=== PATIENT | male | born 1965 | race Caucasian/White ===

== ENCOUNTER → 2016-05-10 | Outpatient (CLI) | payer MEDICARE, MEDICAID | LOC: GMAB 17:05 | PROVIDERS: ATTEND Family Medicine | DX: D50.9 Iron deficiency anemia, unspecified (principal); E53.8 Deficiency of other specified B group vitamins ==

== ENCOUNTER 2016-06-03 15:43 | Emergency (ER) | payer MEDICARE, MEDICAID ==
--- NOTE | 2016-06-03 16:14 | ED.PDOC ---
History of Present Illness - General Chief Complaint: General Stated Complaint: right ankle discomfort Time Seen by Provider: 06/03/16 15:56 Source: patient, RN notes reviewed, Vital Signs reviewed Exam Limitations: no limitations - History of Present Illness Initial Comments: He stated was getting out of bathroom one hour ago twisted right ankle and heard a pop.Had previous surgery on involve ankle several years ago.Denies falling. Occurred: just prior to arrival Pain - Lower Extremity: moderate: Right Ankle Method of Injury: twisted Improving Factors: immobilization Worsening Factors: movement Allergies/Adverse Reactions: Allergies NO KNOWN ALLERGY Allergy (Verified 06/03/16 16:05) Home Medications: Ambulatory Orders Aspirin [Aspirin EC] 81 mg PO DAILY 06/03/14 Canagliflozin [Invokana] 100 mg PO DAILY 06/03/14 Cyanocobalamin Inj [Vitamin B-12 Inj] 1,000 mcg IM MONTHLY 06/03/14 Linagliptin-Metformin HCl [Jentadueto 2.5-1000 mg] 1 tab PO BIDFD 06/03/14 Lisinopril 20 mg PO BID 06/03/14 Metoprolol Tartrate 100 mg PO BID 06/03/14 Multiple Vitamin [Multi-Vitamin Daily] 1 tab PO DAILY 06/03/14 Nitroglycerin 0.4 mg Tab [Nitrostat] 0.4 mg SL PRN PRN 06/03/14 Quetiapine Fumarate [Seroquel Xr] 400 mg PO BEDTIME #0 06/03/14 Acetaminophen W/ Codeine [Tylenol w/Codeine 300-30 mg] 1 tab PO Q6HRS #20 tab Dexlansoprazole [Dexilant] 60 mg PO DAILY 06/03/16 Review of Systems - Review of Systems Constitutional: States: no symptoms reported EENTM: States: no symptoms reported Respiratory: States: no symptoms reported Cardiology: States: no symptoms reported Gastrointestinal/Abdominal: States: no symptoms reported Genitourinary: States: no symptoms reported Musculoskeletal: States: see HPI, joint pain, joint swelling - right ankle Skin: States: no symptoms reported Neurological: States: no symptoms reported Endocrine: States: no symptoms reported Hematologic/Lymphatic: States: no symptoms reported Past Medical History (General) - Patient Medical History Hx Seizures: Yes - Hx of seizures Hx Stroke: No Hx Asthma: No Hx of COPD: No Hx Cardiac Disorders: Yes Hx Congestive Heart Failure: No Hx Pacemaker: No Hx Hypertension: Yes Hx Thyroid Disease: Yes Hx Diabetes: Yes Hx Gastroesophageal Reflux: Yes Hx Cancer: No Hx Hepatitis C: No Hx MRSA: Yes - Arm Wound 2013, Wound 2014, Wound 2016 MRSA Source:: Wound Surgical History: other - ankle surgery right - Vaccination History Hx Influenza Vaccination: Yes - 2015 Hx Pneumococcal Vaccination: Yes - 2016 - Social History Hx Tobacco Use: No Hx Alcohol Use: No Hx Substance Use: No Hx Substance Use Treatment: No Hx Depression: No Hx Physical Abuse: No Hx Emotional Abuse: No - Activities of Daily Living Patient Lives Alone: No - family - Female History Patient : No Family Medical History - Family History Mother Family History: No Known Name: Alex Jiménez Age (years): 51 Living Status: Still Living Hx Family Asthma: No Hx Family Congestive Heart Failure: No Hx Family Hypertension: No Hx Family Stroke: No Hx Cardiac Disease: No Hx Family Diabetes: No Hx Family Cancer: Yes - colon Physical Exam - Physical Exam General Appearance: Alert, Comfortable, No apparent distress Eyes, Ears, Nose, Throat: PERRL/EOMI, normal ENT inspection, TMs normal, pharynx normal Neck: non-tender, full range of motion, supple, normal inspection Cardiovascular/Respiratory: regular rate, rhythm, no M/R/G, normal peripheral pulses, no JVD Gastrointestinal/Abdominal: non-tender, no organomegaly, no hernia Back: normal inspection, no CVA tenderness, no vertebral tenderness Thigh/Hip: normal inspection, non-tender, no evidence of injury Leg: normal inspection, non-tender, no evidence of injury Knee: normal inspection, non-tender, no evidence of injury Ankle: limited ROM, soft tissue tenderness, swelling - right ankle also surgical scars noted Foot: normal inspection, non-tender, no evidence of injury Neuro/Tendon: normal sensation, normal motor functions, normal tendon functions , responds to pain, no evidence tendon injury Mental Status: alert, oriented x 3 Skin: normal color, warm/dry Progress - EKG/XRAY/CT XRAY: ankle - fracture right fibula distal Departure - Departure Clinical Impression: Fracture of fibula alone Qualifiers: Encounter type: initial encounter Fibula location: distal Fracture type: closed Fracture alignment: nondisplaced Laterality: right Time of Disposition: 16:47 Disposition: Discharge to Home or Self Care Condition: Good Departure Forms: ED Discharge - Pt. Copy, Patient Portal Self Enrollment Instructions: Ankle Fracture Referrals: Vamshi Berger MD [Primary Care Provider] - 1-2 Weeks Prescriptions: Acetaminophen W/ Codeine [Tylenol w/Codeine 300-30 mg] 1 tab PO Q6HRS #20 tab Home Medications: Ambulatory Orders Aspirin [Aspirin EC] 81 mg PO DAILY 06/03/14 Canagliflozin [Invokana] 100 mg PO DAILY 06/03/14 Cyanocobalamin Inj [Vitamin B-12 Inj] 1,000 mcg IM MONTHLY 06/03/14 Linagliptin-Metformin HCl [Jentadueto 2.5-1000 mg] 1 tab PO BIDFD 06/03/14 Lisinopril 20 mg PO BID 06/03/14 Metoprolol Tartrate 100 mg PO BID 06/03/14 Multiple Vitamin [Multi-Vitamin Daily] 1 tab PO DAILY 06/03/14 Nitroglycerin 0.4 mg Tab [Nitrostat] 0.4 mg SL PRN PRN 06/03/14 Quetiapine Fumarate [Seroquel Xr] 400 mg PO BEDTIME #0 06/03/14 Acetaminophen W/ Codeine [Tylenol w/Codeine 300-30 mg] 1 tab PO Q6HRS #20 tab Dexlansoprazole [Dexilant] 60 mg PO DAILY 06/03/16 Additional Instructions: FOLLOW UP WITH ORTHOPEDIST 06/05/2016 call for appointment;WEAR WALKING BOOT CAST IN AM OFF AT BEDTIME ;ELEVATE RIGHT LEG 20 DEGREES AT BEDTIME;ICE PACK TO AFFECTED AREA FOR 20 minutes during WAKING hours only
--- NOTE | 2016-06-03 16:26 | RAD ---
EXAM: Ankle,Right 3 Views CLINICAL INDICATION: 51-year-old male with pain. TECHNIQUE: Three views RIGHT ankle were obtained in AP, lateral and oblique projections. COMPARISON: 10/03/2012. FINDINGS: Reidentification of postoperative changes of the RIGHT distal tibia and talus compared to examination dated 10/03/2012. Deformity of the distal tibia, fibula and talus compatible with sequela of prior trauma. Multifocal screws are identified traversing the distal tibia without findings to suggest significant lucency to suggest loosening or hardware failure. Previously identified screw traversing the talus has been removed in the interval. Degenerative changes of the tibiotalar joint space. New nondisplaced horizontal fracture is identified traversing the distal fibula. Mild lateral malleolar soft tissue swelling. Widening of the tibiotalar joint space similar in comparison to the previous examination. IMPRESSION: 1. Horizontal nondisplaced fracture of the distal fibula. 2. Extensive postoperative changes as detailed above. Electronically signed by: Seema Albert MD 06/03/2016 4:26 PM [facility]
[2016-06-03] MEDS ORDERED: HYDROcodone 10MG/APAP 325MG 1 EA TAB PO ONE (16:49)
[2016-06-03 18:04] VITALS: BP 123/69; TEMP 97.5; O2SAT 97
== END 2016-06-03 17:20 | disposition home or self-care (01) ==
LOC: ER 15:43
DX: S82.831A Other fracture of upper and lower end of right fibula, initial encounter for closed fracture (principal); I10 Essential (primary) hypertension; E07.9 Disorder of thyroid, unspecified; E11.9 Type 2 diabetes mellitus without complications; K21.9 Gastro-esophageal reflux disease without esophagitis; Z86.14 Personal history of Methicillin resistant Staphylococcus aureus infection; Z79.82 Long term (current) use of aspirin; Z79.899 Other long term (current) drug therapy; X50.1XXA Overexertion from prolonged static or awkward postures, initial encounter

== ENCOUNTER → 2016-06-28 | Outpatient (CLI) | payer MEDICARE, MEDICAID ==
--- NOTE | 2016-06-28 13:15 | RAD ---
EXAM DESCRIPTION: Tibia/Fibula,Right CLINICAL HISTORY: 51 years Male, FX COMPARISON: June 03, 2016 TECHNIQUE: AP lateral right tib-fib FINDINGS: Transverse fracture distal fibular metaphysis is present and appears subacute but shows no evidence of significant healing since the comparison study. There is also a fracture of the medial malleolus which has become apparent since the previous study. This is a sagittal plane fracture. There is an abnormal relationship of the ankle mortise with widening of the lateral aspect. This indicates significant ligamentous injury/instability. IMPRESSION: 1. Medial and lateral malleolus fractures and findings of mortise joint instability. Electronically signed by: Khurram Lal MD 06/28/2016 1:13 PM CDT
== END | disposition home or self-care (01) ==
LOC: RAD 12:31
PROVIDERS: ATTEND Podiatrist Foot & Ankle Surgery
DX: S82.54XA Nondisplaced fracture of medial malleolus of right tibia, initial encounter for closed fracture (principal); S82.64XA Nondisplaced fracture of lateral malleolus of right fibula, initial encounter for closed fracture

== ENCOUNTER → 2016-08-23 | Outpatient (CLI) | payer MEDICARE, MEDICAID | END | disposition home or self-care (01) | LOC: GMAB 16:35 | PROVIDERS: ATTEND Family Medicine | DX: E03.9 Hypothyroidism, unspecified (principal) ==

== ENCOUNTER → 2016-08-28 | Outpatient (CLI) | payer MEDICARE, MEDICAID | LOC: BFHH 15:53 | PROVIDERS: ATTEND Family Medicine | DX: E11.9 Type 2 diabetes mellitus without complications (principal); M86.9 Osteomyelitis, unspecified ==

== ENCOUNTER → 2016-09-04 | Outpatient (CLI) | payer MEDICARE, MEDICAID | END | disposition home or self-care (01) | LOC: BFHH 17:09 | PROVIDERS: ATTEND Family Medicine | DX: M86.9 Osteomyelitis, unspecified (principal) ==

== ENCOUNTER → 2016-09-18 | Outpatient (CLI) | payer MEDICARE, MEDICAID | END | disposition home or self-care (01) | LOC: BFHH 15:08 | PROVIDERS: ATTEND Family Medicine | DX: M86.8X7 Other osteomyelitis, ankle and foot (principal); I10 Essential (primary) hypertension; E11.69 Type 2 diabetes mellitus with other specified complication; B95.62 Methicillin resistant Staphylococcus aureus infection as the cause of diseases classified elsewhere ==

== ENCOUNTER 2016-09-23 13:52 | Emergency (ER) | payer MEDICARE, MEDICAID ==
[2016-09-23 14:02] VITALS: BP 147/89; TEMP 97.3; O2SAT 97
[2016-09-23] MEDS ORDERED: NEOMYCIN-BACITRACIN-POLYMYXIN 0.9 GM UD TOP ONE (14:08)
[2016-09-23] MEDS ORDERED: CIPROFLOXACIN 500 MG TAB PO ONE (14:10)
--- NOTE | 2016-09-23 14:12 | ED.PDOC ---
History of Present Illness - General Chief Complaint: Skin/Abrasion/Tear Time Seen by Provider: 09/23/16 13:58 Source: patient Exam Limitations: no limitations - History of Present Illness Initial Comments: The patient is a 51-year-old male presenting to the emergency room secondary to serosanguineous drainage immediately over a pain pump site to his right lateral abdomen. He had a pain pump placed approximately 1 year ago. 2 days ago he started having some pain at the site. He developed something along the lines of a blood blister that ruptured today. The point of rupture does immediately overlying a corner of the pain pump. He currently takes IV daptomycin for a foot infection. Wound culture has been taken of the site on his right side. The area does not appear erythematous or significantly irritated. No obvious infection as the source. Timing/Duration: 24 hours Severity: moderate Improving Factors: nothing Worsening Factors: nothing Associated Symptoms: denies symptoms Allergies/Adverse Reactions: Allergies NO KNOWN ALLERGY Allergy (Verified 09/23/16 14:05) Home Medications: Ambulatory Orders Aspirin [Aspirin EC] 81 mg PO DAILY 06/03/14 Canagliflozin [Invokana] 100 mg PO DAILY 06/03/14 Cyanocobalamin Inj [Vitamin B-12 Inj] 1,000 mcg IM MONTHLY 06/03/14 Linagliptin-Metformin HCl [Jentadueto 2.5-1000 mg] 1 tab PO BIDFD 06/03/14 Lisinopril 20 mg PO BID 06/03/14 Metoprolol Tartrate 100 mg PO BID 06/03/14 Multiple Vitamin [Multi-Vitamin Daily] 1 tab PO DAILY 06/03/14 Nitroglycerin 0.4 mg Tab [Nitrostat] 0.4 mg SL PRN PRN 06/03/14 Quetiapine Fumarate [Seroquel Xr] 400 mg PO BEDTIME #0 06/03/14 Ciprofloxacin [Cipro] 500 mg PO BID #20 tab 09/23/16 Ferrous Sulfate [Iron] 65 mg PO DAILY 09/23/16 QUEtiapine FUMARATE [SEROquel] 100 mg PO BEDTIME 09/23/16 Thyroid Med 1 each PO DAILY 09/23/16 Review of Systems - Review of Systems Review of Systems: 09/23/16 14:12 for new symptoms only Constitutional: States: no symptoms reported EENTM: States: no symptoms reported Respiratory: States: no symptoms reported Cardiology: States: no symptoms reported Gastrointestinal/Abdominal: States: see HPI Genitourinary: States: no symptoms reported Musculoskeletal: States: no symptoms reported Skin: States: see HPI Neurological: States: no symptoms reported Endocrine: States: no symptoms reported All other Systems: No Change from Baseline Past Medical History (General) - Patient Medical History Hx Seizures: No Hx Stroke: No Hx Dementia: No Hx Asthma: No Hx of COPD: No Hx Cardiac Disorders: Yes Hx Congestive Heart Failure: No Hx Pacemaker: No Hx Hypertension: Yes Hx Thyroid Disease: Yes Hx Diabetes: Yes Hx Gastroesophageal Reflux: Yes Hx Renal Disease: No Hx Cancer: No Hx of HIV: No Hx Hepatitis C: No Hx MRSA: Yes MRSA Source:: Wound - Vaccination History Hx Tetanus, Diphtheria Vaccination: Yes Hx Influenza Vaccination: Yes Hx Pneumococcal Vaccination: Yes Immunizations Up to Date: Yes - Social History Hx Tobacco Use: No Hx Chewing Tobacco Use: No Hx Alcohol Use: No Hx Substance Use: No Hx Substance Use Treatment: No Hx Depression: No Feels Threatened In Home Enviroment: No Feels Threatened In a Relationship: No Hx Physical Abuse: No Hx Emotional Abuse: No Hx Suspected Abuse: No - Female History Patient is a Female of Child Bearing Age (10 -59 yrs old): No Patient : No Family Medical History - Family History Mother Family History: No Known Name: Alex Jiménez Age (years): 50 Living Status: Still Living Hx Family Asthma: No Hx Family Congestive Heart Failure: No Hx Family Hypertension: No Hx Family Stroke: No Hx Cardiac Disease: No Hx Family Diabetes: No Hx Family Cancer: Yes - colon Physical Exam - Physical Exam General Appearance: Alert, Comfortable, No apparent distress Eye Exam: bilateral normal Ears, Nose, Throat: normal ENT inspection, normal pharynx Neck: full range of motion, supple Respiratory: chest non-tender, lungs clear, normal breath sounds, no respiratory distress, no accessory muscle use Cardiovascular/Chest: normal peripheral pulses, no edema, other - regular rate Peripheral Pulses: radial,right: 2+, radial,left: 2+, dorsalis pedis,right: 2+, dorsalis pedis,left: 2+ Gastrointestinal/Abdominal: non tender, soft, other - pain pump is palpable to the right lateral abdomen overlying 2 mm punctate drainage site Rectal Exam: deferred Back Exam: no CVA tenderness Extremity: normal range of motion, no calf tenderness, normal capillary refill, other - chronic lesion to the right lower extremity Neurologic: alert, normal mood/affect, oriented x 3 Skin Exam: normal color - with the exception of problems above Comments: Vital Signs 09/23/16 13:58 Temperature 97.3 F L Pulse Rate [ 75 Left Radial] Respiratory 20 Rate Blood Pressure 147/89 [Left Arm] O2 Sat by Pulse 97 Oximetry Progress - Progress Progress: 09/23/16 14:14 the patient is a 51-year-old male presenting to the emergency room secondary to serosanguineous drainage from a punctate lesion overlying a corner of the pain pump that is embedded in his right abdominal wall. There does not appear to be much in the way of surrounding cellulitis or any definite abscess formation. I'm uncertain at the time of formation of this lesion is due to underlying infection or simple mechanical abrasion. He is already receiving IV daptomycin for a foot infection. He can continue this. We are going to add ciprofloxacin for the next 10 days. He needs to keep well-hydrated. He needs to contact the surgeon that placed the pain pump for further evaluation as soon as possible. Wound culture of the site has been performed. Results are of course still pending at this time. ER warnings were given for any acute worsening. He needs to keep the site covered with a Band-Aid and antibiotic ointment. Departure - Departure Clinical Impression: Laceration of skin Disposition: Discharge to Home or Self Care Departure Forms: ED Discharge - Pt. Copy, Patient Portal Self Enrollment Instructions: DI for Laceration Repair -- Simple Diet: diabetic diet Activity: increase activity as tolerated Referrals: Vamshi Berger MD [Primary Care Provider] - 1-2 Weeks Prescriptions: Ciprofloxacin [Cipro] 500 mg PO BID #20 tab Home Medications: Ambulatory Orders Aspirin [Aspirin EC] 81 mg PO DAILY 06/03/14 Canagliflozin [Invokana] 100 mg PO DAILY 06/03/14 Cyanocobalamin Inj [Vitamin B-12 Inj] 1,000 mcg IM MONTHLY 06/03/14 Linagliptin-Metformin HCl [Jentadueto 2.5-1000 mg] 1 tab PO BIDFD 06/03/14 Lisinopril 20 mg PO BID 06/03/14 Metoprolol Tartrate 100 mg PO BID 06/03/14 Multiple Vitamin [Multi-Vitamin Daily] 1 tab PO DAILY 06/03/14 Nitroglycerin 0.4 mg Tab [Nitrostat] 0.4 mg SL PRN PRN 06/03/14 Quetiapine Fumarate [Seroquel Xr] 400 mg PO BEDTIME #0 06/03/14 Ciprofloxacin [Cipro] 500 mg PO BID #20 tab 09/23/16 Ferrous Sulfate [Iron] 65 mg PO DAILY 09/23/16 QUEtiapine FUMARATE [SEROquel] 100 mg PO BEDTIME 09/23/16 Thyroid Med 1 each PO DAILY 09/23/16 Additional Instructions: the patient is a 51-year-old male presenting to the emergency room secondary to serosanguineous drainage from a punctate lesion overlying a corner of the pain pump that is embedded in his right abdominal wall. There does not appear to be much in the way of surrounding cellulitis or any definite abscess formation. I'm uncertain at the time of formation of this lesion is due to underlying infection or simple mechanical abrasion. He is already receiving IV daptomycin for a foot infection. He can continue this. We are going to add ciprofloxacin for the next 10 days. He needs to keep well-hydrated. He needs to contact the surgeon that placed the pain pump for further evaluation as soon as possible. Wound culture of the site has been performed. Results are of course still pending at this time. ER warnings were given for any acute worsening. He needs to keep the site covered with a Band-Aid and antibiotic ointment.
== END 2016-09-23 14:38 | disposition home or self-care (01) ==
LOC: ER 13:52
DX: S31.119A Laceration without foreign body of abdominal wall, unspecified quadrant without penetration into peritoneal cavity, initial encounter (principal); K21.9 Gastro-esophageal reflux disease without esophagitis; I10 Essential (primary) hypertension; E07.9 Disorder of thyroid, unspecified; E11.9 Type 2 diabetes mellitus without complications; Z86.14 Personal history of Methicillin resistant Staphylococcus aureus infection; Z79.82 Long term (current) use of aspirin; Z79.899 Other long term (current) drug therapy; Z79.2 Long term (current) use of antibiotics; X58.XXXA Exposure to other specified factors, initial encounter; Y92.9 Unspecified place or not applicable; Z97.8 Presence of other specified devices

== ENCOUNTER → 2016-09-25 | Outpatient (CLI) | payer MEDICARE, MEDICAID | END | disposition home or self-care (01) | LOC: BFHH 13:36 | PROVIDERS: ATTEND Family Medicine | DX: T81.4XXA Infection following a procedure, initial encounter (principal); B95.62 Methicillin resistant Staphylococcus aureus infection as the cause of diseases classified elsewhere; M86.8X7 Other osteomyelitis, ankle and foot; E11.69 Type 2 diabetes mellitus with other specified complication ==

== ENCOUNTER → 2016-10-02 | Outpatient (CLI) | payer MEDICARE, MEDICAID | END | disposition home or self-care (01) | LOC: BFHH 14:06 | PROVIDERS: ATTEND Family Medicine | DX: T81.4XXA Infection following a procedure, initial encounter (principal); B95.62 Methicillin resistant Staphylococcus aureus infection as the cause of diseases classified elsewhere; M86.8X7 Other osteomyelitis, ankle and foot; G72.81 Critical illness myopathy; I10 Essential (primary) hypertension ==

== ENCOUNTER → 2016-10-06 | Outpatient (CLI) | payer MEDICARE, MEDICAID ==
--- NOTE | 2016-10-09 08:25 | RAD ---
EXAM DESCRIPTION: Ankle,Right 3 Views (accession [id number]), Foot,Right 3 Views (accession [id number]) CLINICAL HISTORY: 51 years Male, [id number] COMPARISON: Right ankle series June 03, 2016 FINDINGS: 3 views of the right foot and right ankle were obtained. There is no acute right foot fracture or malalignment. Mild degenerative changes are noted at the first MTP joint. Again seen are postoperative changes in the right ankle including multiple metallic screws in the distal right tibia with an old healed distal right tibial fracture. There is a new cancellous screw in the lateral malleolus with a persistently nonunited lateral malleolar fracture. There is marked destruction of the tibial plafond and talar dome with tibiotalar joint space narrowing and medial subluxation of the tibiotalar joint. Diffuse soft tissue swelling is noted with a right ankle joint effusion. There are multiple calcifications in the soft tissues adjacent to the tibiotalar joint which could represent fracture fragments and/or synovial calcification. The calcaneus and subtalar joint are relatively well maintained. IMPRESSION: Postoperative changes in the right ankle with extensive bony destruction involving the tibial plafond and talar dome including destruction and medial subluxation of the tibiotalar joint space, new from May,. Additional fractures involving the medial and lateral malleoli. Differential considerations include infection with pathologic fracture or neuropathic joint. No hardware loosening or hardware fracture. Extensive soft tissue swelling and multiple tiny calcifications surrounding the abnormal tibiotalar joint representing fracture fragments and/or synovial calcification. Electronically signed by: Luis Blackwell MD 10/09/2016 8:24 AM CDT Workstation: [id number]
== END | disposition home or self-care (01) ==
LOC: RAD 15:23
PROVIDERS: ATTEND Podiatrist Foot & Ankle Surgery
DX: S82.61 Displaced fracture of lateral malleolus of right fibula (principal); X58.XXXA Exposure to other specified factors, initial encounter

== ENCOUNTER 2016-11-09 13:57 | Emergency (ER) | payer MEDICARE, MEDICAID ==
[2016-11-09] MEDS ORDERED: HYDROcodone 10MG/APAP 325MG 1 EA TAB PO ONE (14:20)
[2016-11-09] MEDS ORDERED: KETOROLAC TROMETHAMINE INJ 60 MG/2 ML VIAL IM ONE (14:20)
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
[2016-11-09 14:25] VITALS: TEMP 97.8; O2SAT 98
--- NOTE | 2016-11-09 15:04 | RAD ---
EXAM DESCRIPTION: Ankle,Right 3 Views CLINICAL HISTORY: 51 years, Male, pain COMPARISON: October 06, 2016 TECHNIQUE: AP/lateral/oblique of the ankle FINDINGS: Three-view right ankle demonstrates nonunion fracture lateral malleolus. There is fracture deformity and posttraumatic osteolysis of the talus. Medial malleolus is completely resorbed. Tibial plafond and shows marginal resorption with no smooth articular surface. Calcaneus and tarsal bones grossly unremarkable. Electronically signed by: Khurram Lal MD 11/09/2016 3:03 PM CDT
[2016-11-09 15:47] VITALS: BP 144/85
== END 2016-11-09 15:40 | disposition home or self-care (01) ==
LOC: ER 13:57
DX: M25.571 Pain in right ankle and joints of right foot (principal); S82.61XA Displaced fracture of lateral malleolus of right fibula, initial encounter for closed fracture; I10 Essential (primary) hypertension; E07.9 Disorder of thyroid, unspecified; E11.9 Type 2 diabetes mellitus without complications; K21.9 Gastro-esophageal reflux disease without esophagitis; Z86.14 Personal history of Methicillin resistant Staphylococcus aureus infection; Z89.202 Acquired absence of left upper limb, unspecified level; Z79.82 Long term (current) use of aspirin; Z79.899 Other long term (current) drug therapy; X58.XXXA Exposure to other specified factors, initial encounter
CPT/HCPCS: 73610; 96372; 99284; J1885

== ENCOUNTER → 2016-12-21 | Outpatient (CLI) | payer MEDICARE, MEDICAID | END | disposition home or self-care (01) | LOC: GMAB 15:07 | PROVIDERS: ATTEND Family Medicine | DX: M86.9 Osteomyelitis, unspecified (principal) ==

== ENCOUNTER → 2017-02-20 | Outpatient (CLI) | payer MEDICARE, MEDICAID | END | disposition home or self-care (01) | LOC: GMAB 14:58 | PROVIDERS: ATTEND Family Medicine | DX: M86.9 Osteomyelitis, unspecified (principal); E11.40 Type 2 diabetes mellitus with diabetic neuropathy, unspecified ==

== ENCOUNTER 2017-03-18 13:47 | Emergency (ER) | payer MEDICARE, MEDICAID ==
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
[2017-03-18 14:03] VITALS: BP 144/84; TEMP 96.5; O2SAT 98
--- NOTE | 2017-03-18 14:43 | RAD ---
EXAM DESCRIPTION: Ankle,Right 3 Views CLINICAL HISTORY: 51 years Male, pain COMPARISON: October 06, 2016 FINDINGS: There has been interval placement of a plate and screw fixation device over the lateral aspect of the distal tibia, talus and calcaneus. This fracture of the plate and screws device at the level of the tibiotalar joint. Additional metallic screws are present elsewhere in the distal right tibia, stable. There is been interval resection of the right fibula distally. No acute fracture or malalignment. IMPRESSION: Postoperative changes in the right ankle including fusion of the right ankle joint with a plate and screw fixation device over the lateral aspect of the right ankle. Fracture of the plate and screw device at the level of the tibiotalar joint, questionable acuity. Interval resection of the distal right fibula, but no acute bone fracture or malalignment. Electronically signed by: Luis Blackwell MD 03/18/2017 2:42 PM [facility]
[2017-03-18] MEDS: predniSONE 20 MG TAB PO ONE (15:07)
[2017-03-18] MEDS: KETOROLAC TROMETHAMINE INJ 30 MG/ML VIAL IM ONE (15:07)
== END 2017-03-18 15:20 | disposition home or self-care (01) ==
LOC: ER 13:47
DX: M10.471 Other secondary gout, right ankle and foot (principal); I10 Essential (primary) hypertension; E11.9 Type 2 diabetes mellitus without complications; E07.9 Disorder of thyroid, unspecified; K21.9 Gastro-esophageal reflux disease without esophagitis; Z79.899 Other long term (current) drug therapy; Z79.82 Long term (current) use of aspirin
CPT/HCPCS: 36415; 73610; 84550; J1885; J7512

== ENCOUNTER → 2017-03-22 | Outpatient (CLI) | payer MEDICARE, MEDICAID | LOC: GMAB 15:20 | PROVIDERS: ATTEND Family Medicine | DX: M25.571 Pain in right ankle and joints of right foot (principal) ==

== ENCOUNTER → 2017-04-11 | Outpatient (CLI) | payer MEDICARE, MEDICAID | END | disposition home or self-care (01) | LOC: GMAB 10:35 | PROVIDERS: ATTEND Family Medicine | DX: E03.9 Hypothyroidism, unspecified (principal) ==

== ENCOUNTER → 2017-05-16 | Outpatient (CLI) | payer MEDICARE, MEDICAID | LOC: GMAB 11:25 | PROVIDERS: ATTEND Family Medicine | DX: Z12.5 Encounter for screening for malignant neoplasm of prostate (principal) ==

== ENCOUNTER → 2017-06-25 | Outpatient (CLI) | payer MEDICARE, MEDICAID | LOC: GMAM 16:48 | PROVIDERS: ATTEND Family Medicine | DX: M79.1 Myalgia (principal) ==

== ENCOUNTER → 2017-09-25 | Outpatient (CLI) | payer MEDICARE, MEDICAID | LOC: GMAB 10:45 | PROVIDERS: ATTEND Family Medicine | DX: D50.9 Iron deficiency anemia, unspecified (principal); E53.8 Deficiency of other specified B group vitamins ==

== ENCOUNTER → 2017-11-14 | Outpatient (CLI) | payer MEDICARE, MEDICAID | LOC: GMAE 11:05 | PROVIDERS: ATTEND Family Medicine | DX: I10 Essential (primary) hypertension (principal) ==

== ENCOUNTER → 2017-12-27 | Outpatient (CLI) | payer MEDICARE, MEDICAID | LOC: GMAE 11:44 | PROVIDERS: ATTEND Family Medicine | DX: E83.52 Hypercalcemia (principal) ==

== ENCOUNTER → 2018-01-01 | Outpatient (CLI) | payer MEDICARE, MEDICAID | LOC: GMAE 11:52 | PROVIDERS: ATTEND Family Medicine | DX: E53.8 Deficiency of other specified B group vitamins (principal) ==

== ENCOUNTER → 2018-01-18 | Outpatient (CLI) | payer MEDICARE, MEDICAID ==
[~2018-01-18] MED LIST: ALBUTEROL SULFATE 2.5 MG/3 ML VIAL NEB ONE
== END ==
LOC: RESP 10:03
PROVIDERS: ATTEND Family Medicine
DX: R06.02 Shortness of breath (principal)
CPT/HCPCS: 94060; J7611

== ENCOUNTER → 2018-04-23 | Outpatient (CLI) | payer MEDICARE, MEDICAID | LOC: GMAE 15:29 | PROVIDERS: ATTEND Family Medicine | DX: D51.9 Vitamin B12 deficiency anemia, unspecified (principal); E55.9 Vitamin D deficiency, unspecified ==

== ENCOUNTER → 2018-04-30 | Outpatient (CLI) | payer MEDICARE, MEDICAID | LOC: GMAE 14:27 | PROVIDERS: ATTEND Family Medicine | DX: E03.9 Hypothyroidism, unspecified (principal) ==

== ENCOUNTER → 2018-06-25 | Outpatient (CLI) | payer MEDICARE, MEDICAID | LOC: GMAE 12:54 | PROVIDERS: ATTEND Family Medicine | DX: E55.9 Vitamin D deficiency, unspecified (principal) ==

== ENCOUNTER → 2018-07-05 | Outpatient (CLI) | payer MEDICARE, MEDICAID | LOC: LAB.O 09:25 | PROVIDERS: ATTEND Nurse Practitioner Psychiatric/Mental Health | DX: Z79.899 Other long term (current) drug therapy (principal) ==

== ENCOUNTER → 2018-07-24 | Outpatient (CLI) | payer MEDICARE, MEDICAID | LOC: GMAE 11:32 | PROVIDERS: ATTEND Family Medicine | DX: Z12.5 Encounter for screening for malignant neoplasm of prostate (principal); E03.9 Hypothyroidism, unspecified; E55.9 Vitamin D deficiency, unspecified | CPT/HCPCS: 84439; 84443; 84481; G0103 ==

== ENCOUNTER → 2018-08-08 | Outpatient (CLI) | payer MEDICARE, MEDICAID | LOC: LAB.O 10:41 | PROVIDERS: ATTEND Nurse Practitioner Family | DX: R25.2 Cramp and spasm (principal) ==

== ENCOUNTER → 2018-10-01 | Outpatient (CLI) | payer MEDICARE, MEDICAID ==
--- NOTE | 2018-10-03 07:25 | RAD ---
EXAM: Ankle,Right 3 Views CLINICAL HISTORY: CHARCOT ARTHROPATHY OF JOINT ANKLE COMPARISON STUDY: Right ankle March 18, 2017 TECHNICAL: AP, lateral and oblique x-rays of the right ankle FINDINGS: Plate and screws extend along the lateral ankle. The plate is fractured and unchanged. The multiple screws are unchanged. There are severe chronic changes of the tibiotalar joint and talocalcaneal joint. There is fusion of the posterior aspect of the tibiotalar joint. No acute fracture or dislocation. Prior resection of the distal fibula. IMPRESSION: 1. Suspected fusion of the tibiotalar joint. 2. Fractured lateral ankle plate is unchanged from 2017. The hardware is stable. Electronically signed by: Gareth Thapa MD 10/03/2018 7:23 AM CDT
== END ==
LOC: RAD 16:31
PROVIDERS: ATTEND Family Medicine
DX: M14.679 Charcot's joint, unspecified ankle and foot (principal); Z87.81 Personal history of (healed) traumatic fracture

== ENCOUNTER → 2018-10-07 | Outpatient (CLI) | payer MEDICARE, MEDICAID | LOC: YCFC.O 07:51 | PROVIDERS: ATTEND Family Medicine | DX: E11.42 Type 2 diabetes mellitus with diabetic polyneuropathy (principal); E55.9 Vitamin D deficiency, unspecified; I10 Essential (primary) hypertension ==

== ENCOUNTER 2018-10-12 05:27 | Emergency (ER) | payer MEDICARE, MEDICAID ==
[2018-10-12] MEDS ORDERED: OXYMETAZOLINE NASAL SPRAY 15 ML BTTL BNAS ONE (05:50)
[2018-10-12] MEDS ORDERED: ONDANSETRON INJ 4 MG/2 ML VIAL IV ONE (05:53)
[2018-10-12] MEDS ORDERED: SODIUM CHLORIDE 0.9% (FLUSH) 10 ML SYG IV PRN (05:53)
[2018-10-12] MEDS ORDERED: SODIUM CHLORIDE 0.9% 1000ML 1,000 ML IVS ONE ×2 (05:54→09:52)
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
--- NOTE | 2018-10-12 06:22 | RAD ---
EXAM: XR Chest, 1 View CLINICAL HISTORY: The patient is 53 years old and is Male; tachycardia TECHNIQUE: Frontal view of the chest. COMPARISON: Chest radiograph from 06/03/2014 FINDINGS: LUNGS: Unremarkable. No consolidation. PLEURAL SPACE: Unremarkable. No pneumothorax. HEART: Stable moderate enlargement of the cardiac silhouette. MEDIASTINUM: Unremarkable. BONES/JOINTS: Old fracture of the left clavicle. No acute fracture visualized. TUBES, LINES AND DEVICES: Loop recorder visualized projecting over the left chest. IMPRESSION: No acute findings visualized in the chest. Electronically signed by: Yanet Chávez MD 10/12/2018 6:20 AM CDT
[2018-10-12 13:59] VITALS: BP 171/93; TEMP 97.9; O2SAT 97
== END 2018-10-12 13:59 | disposition short-term general hospital (02) ==
LOC: ER 05:27
DX: R04.0 Epistaxis (principal); D62 Acute posthemorrhagic anemia; E86.0 Dehydration; R00.0 Tachycardia, unspecified; F10.10 Alcohol abuse, uncomplicated; E11.9 Type 2 diabetes mellitus without complications; R11.2 Nausea with vomiting, unspecified; I51.9 Heart disease, unspecified; I10 Essential (primary) hypertension; E07.9 Disorder of thyroid, unspecified; K21.9 Gastro-esophageal reflux disease without esophagitis; F32.9 Major depressive disorder, single episode, unspecified; Z79.82 Long term (current) use of aspirin; Z79.84 Long term (current) use of oral hypoglycemic drugs; Z79.899 Other long term (current) drug therapy
CPT/HCPCS: 36415; 36416; 71045; 80048; 80307; 80320; 81001; 82150; 82550; 82553; 82948; 83690; 84484; 85025; 85610; 85730; 86850; 86900; 86901; 93005; J2060; J2405; J7030

== ENCOUNTER → 2018-10-31 | Outpatient (CLI) | payer MEDICARE, MEDICAID ==
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
== END ==
LOC: YCFC.O 11:20
PROVIDERS: ATTEND Nurse Practitioner
DX: R61 Generalized hyperhidrosis (principal); I51.7 Cardiomegaly; R07.9 Chest pain, unspecified

== ENCOUNTER → 2018-11-04 | Outpatient (CLI) | payer MEDICARE, MEDICAID | LOC: LAB.O 08:41 | PROVIDERS: ATTEND Nurse Practitioner | DX: D64.9 Anemia, unspecified (principal); D50.0 Iron deficiency anemia secondary to blood loss (chronic) ==

== ENCOUNTER → 2018-11-11 | Outpatient (CLI) | payer MEDICARE, MEDICAID | LOC: LAB.O 15:50 | PROVIDERS: ATTEND Nurse Practitioner | DX: D64.9 Anemia, unspecified (principal); M62.81 Muscle weakness (generalized) ==

== ENCOUNTER → 2018-11-15 | Outpatient (CLI) | payer MEDICARE, MEDICAID ==
--- NOTE | 2018-11-18 09:29 | RAD ---
EXAM DESCRIPTION: Shoulder,Left 2 or More Views CLINICAL HISTORY: FALL COMPARISON: None Available. TECHNIQUE: Two views of the left shoulder. FINDINGS/IMPRESSION: Images of the left shoulder demonstrate prior amputation through the distal humeral diaphysis. There is an acute, mildly displaced, comminuted fracture of the mid humeral shaft extending to the proximal diaphysis. Overlying soft tissue swelling is present. Chronic healed fracture deformity of the left distal clavicle. The left glenohumeral and acromioclavicular joints appear to be intact. Electronically signed by: Gomez Hanna DO 11/18/2018 9:28 AM CDT
== END ==
LOC: YCFC.O 16:24
PROVIDERS: ATTEND Nurse Practitioner
DX: S42.351A Displaced comminuted fracture of shaft of humerus, right arm, initial encounter for closed fracture (principal); M95.8 Other specified acquired deformities of musculoskeletal system; Z89.222 Acquired absence of left upper limb above elbow; W19.XXXA Unspecified fall, initial encounter

== ENCOUNTER 2018-12-11 14:46 | Emergency (ER) | payer MEDICARE, MEDICAID ==
--- NOTE | 2018-12-11 15:19 | ED.PDOC ---
History of Present Illness - General Chief Complaint: Cardiovascular Problem Stated Complaint: ELEVATED HR, CHEST HEAVINESS Time Seen by Provider: 12/11/18 15:07 Source: patient Exam Limitations: no limitations - History of Present Illness Initial Comments: HE WENT TO THE [facility] FOR A ROUTINE VISIT FOR HIS DEPRESSION AND THERE IT WAS NOTED THAT HE HAD TACHYCARDIA. THE PATIENT WAS SENT TO SEE HIS PCP AND HIS PCP CALLED AND AMBULANCE FOR HIM. HIS VOICES THAT HE HAS BEEN HAVING SOME HEAVINESS ON HIS CHEST SINCE THIS AM. HE WAS GIVEN NTG AND CLONIDINE AND ASPIRING AND TRANSFERRED HERE. ON ARRIVAL HE IS CHEST PAIN FREE. Timing/Duration: 4-6 hours Severity: moderate Location: substernal Prior Chest Pain/Cardiac Workup: no prior chest pain Improving Factors: nothing Nitro Today/Relief: 0.4 mg x 1 Aspirin Treatment Today: 325 mg x 1 Allergies/Adverse Reactions: Allergies NO KNOWN ALLERGY Allergy (Verified 09/23/16 14:05) Home Medications: Ambulatory Orders Aspirin [Aspirin EC] 81 mg PO DAILY 06/03/14 Linagliptin-Metformin HCl [Jentadueto 2.5-1000 mg] 1 tab PO BIDFD 06/03/14 Metoprolol Tartrate 100 mg PO BID 06/03/14 Carbamazepine 200 mg PO BID 10/12/18 Clopidogrel Bisulfate [Clopidogrel] 300 mg PO DAILY 10/12/18 Cyclobenzaprine HCl [Cyclobenzaprine Hydrochlo] 10 mg PO BEDTIME 10/12/18 Dapagliflozin Propanediol [Farxiga] 10 mg PO DAILY 10/12/18 Dexlansoprazole [Dexilant] 60 mg PO DAILY 10/12/18 Escitalopram Oxalate 20 mg PO DAILY 10/12/18 Ezetimibe 10 mg PO DAILY 10/12/18 Pregabalin [Lyrica] 150 mg PO BID 10/12/18 Simvastatin 20 mg PO DAILY 10/12/18 Tamsulosin [Flomax] 0.4 mg PO QD 10/12/18 Review of Systems - Review of Systems Constitutional: States: no symptoms reported EENTM: States: no symptoms reported Respiratory: States: no symptoms reported Cardiology: States: chest pain, palpitations Gastrointestinal/Abdominal: States: no symptoms reported Genitourinary: States: no symptoms reported Musculoskeletal: States: no symptoms reported Skin: States: no symptoms reported Neurological: States: no symptoms reported Past Medical History (General) - Patient Medical History Hx Seizures: No Hx Stroke: No Hx Dementia: No Hx Asthma: No Hx of COPD: No Hx Cardiac Disorders: Yes Hx Congestive Heart Failure: No Hx Pacemaker: No Hx Hypertension: Yes Hx Thyroid Disease: Yes Hx Diabetes: Yes Hx Gastroesophageal Reflux: Yes Hx Renal Disease: No Hx Cancer: No Hx of HIV: No Hx Hepatitis C: No Hx MRSA: Yes MRSA Source:: Wound - Vaccination History Hx Tetanus, Diphtheria Vaccination: No Hx Influenza Vaccination: No Hx Pneumococcal Vaccination: No Immunizations Up to Date: No - Social History Hx Tobacco Use: No Hx Chewing Tobacco Use: No Hx Alcohol Use: Yes - STATES QUIT ETOH ABOUT 6MO AGO Hx Substance Use: No Hx Substance Use Treatment: No Hx Depression: No Hx Physical Abuse: No Hx Emotional Abuse: No Hx Suspected Abuse: No - Female History Patient : No Family Medical History - Family History Mother Family History: No Known Name: Alex Jiménez Age (years): 51 Living Status: Still Living Hx Family Asthma: No Hx Family Congestive Heart Failure: No Hx Family Hypertension: No Hx Family Stroke: No Hx Cardiac Disease: No Hx Family Diabetes: No Hx Family Cancer: Yes - colon Physical Exam - Physical Exam General Appearance: Alert, No apparent distress, Well Nourished Eyes, Ears, Nose, Throat Exam: PERRL/EOMI, normal ENT inspection Neck: non-tender, full range of motion, supple Respiratory: chest non-tender, lungs clear Cardiovascular/Chest: normal peripheral pulses, regular rate, rhythm, tachycardia Peripheral Pulses: radial,right: 2+, radial,left: 2+ Gastrointestinal/Abdominal: normal bowel sounds, non tender, soft, no organomegaly Rectal Exam: deferred Extremity: no pedal edema, no calf tenderness Neurologic: no motor/sensory deficits, alert, oriented x 3 Progress - Progress Progress: 12/11/18 17:21 EKG; HR OF 123, TX INTERVAL OF 180, QRS OF 80, QTC OF 684, AXES OF -27 DEGREES. IMPRESSION; SINUS TACHYCARDIA - Results/Orders Results/Orders: 12/11/18 15:30 EKG STAT Laboratory Results WBC 9.8 K/mm3 (4.8-10.8) 12/11/18 15:23 RBC 4.86 M/mm3 (4.70-6.10) 12/11/18 15:23 Hgb 14.3 gm/dL (14.0-18.0) 12/11/18 15:23 Hct 42.7 % (42.0-52.0) 12/11/18 15:23 MCV 87.9 fl (80.0-94.0) 12/11/18 15:23 MCH 29.5 pg (27.0-31.0) 12/11/18 15:23 MCHC 33.6 g/dL (33.0-37.0) 12/11/18 15:23 RDW 21.8 % (11.5-14.5) H 12/11/18 15:23 Plt Count 390 K/mm3 (130-400) 12/11/18 15:23 MPV 6.9 fl (7.40-10.4) L 12/11/18 15:23 Absolute Neuts (auto) 7.10 K/uL (1.8-6.8) H 12/11/18 15:23 Absolute Lymphs (auto) 1.60 K/uL (1.0-3.4) 12/11/18 15:23 Absolute Monos (auto) 0.90 K/uL (0.2-0.8) H 12/11/18 15:23 Absolute Eos (auto) 0.10 K/uL (0.0-0.4) 12/11/18 15:23 Absolute Basos (auto) 0.10 K/uL (0.0-0.1) 12/11/18 15:23 Neutrophils % 72.5 % (42.0-78.0) 12/11/18 15:23 Lymphocytes % 16.3 % (20.0-50.0) L 12/11/18 15:23 Monocytes % 9.5 % (2.0-9.0) H 12/11/18 15:23 Eosinophils % 0.9 % (1.0-5.0) L 12/11/18 15:23 Basophils % 0.8 % (0.0-2.0) 12/11/18 15:23 RBC Morphology 2+aniso 1+microcytosis Stain quality accept Plts marcella adequate 12/11/18 15:23 RBC Morphology 2+aniso 1+microcytosis Stain quality accept Plts marcella adequate 12/11/18 15:23 RBC Morphology 2+aniso 1+microcytosis Stain quality accept Plts marcella adequate 12/11/18 15:23 RBC Morphology 2+aniso 1+microcytosis Stain quality accept Plts marcella adequate 12/11/18 15:23 D-Dimer, Quantitative 0.45 mg/L FEU (0-0.49) 12/11/18 15:23 Sodium 136 mmol/L (135-145) 12/11/18 15:23 Potassium 3.9 mmol/L (3.6-5.0) 12/11/18 15:23 Chloride 99 mmol/L (101-111) L 12/11/18 15:23 Carbon Dioxide 21 mmol/L (21-31) 12/11/18 15:23 Anion Gap 19.9 (12-18) H 12/11/18 15:23 BUN 8 mg/dL (7-18) 12/11/18 15:23 Creatinine 0.96 mg/dL (0.6-1.3) 12/11/18 15:23 BUN/Creatinine Ratio 8.3 (10-20) L 12/11/18 15:23 Random Glucose 177 mg/dL (70-105) H 12/11/18 15:23 Serum Osmolality 274.7 mOsm/L (275-295) L 12/11/18 15:23 Calcium 10.5 mg/dL (8.4-10.2) H 12/11/18 15:23 Total Bilirubin 0.3 mg/dL (0.2-1.0) 12/11/18 15:23 AST 25 IU/L (10-42) 12/11/18 15:23 ALT 23 IU/L (10-60) 12/11/18 15:23 Alkaline Phosphatase 130 IU/L (42-121) H 12/11/18 15:23 Troponin I < 0.02 ng/mL (0.01-0.05) 12/11/18 15:23 B-Natriuretic Peptide 8.5 pg/ml (0-100) 12/11/18 15:23 Serum Total Protein 8.4 gm/dL (6.4-8.2) H 12/11/18 15:23 Albumin 5.0 g/dl (3.2-5.5) 12/11/18 15:23 Globulin 3.4 gm/dL (2.3-3.5) 12/11/18 15:23 Albumin/Globulin Ratio 1.5 (1.1-1.9) 12/11/18 15:23 TSH 2.72 uIU/mL (0.34-5.60) 12/11/18 15:38 Departure - Departure Clinical Impression: Sinus tachycardia Time of Disposition: 17:23 Disposition: Discharge to Home or Self Care Condition: Good Departure Forms: ED Discharge - Pt. Copy, Patient Portal Self Enrollment Instructions: DI for Chest Pain Diet: resume usual diet Referrals: Vamshi Berger MD [Primary Care Provider] - 1-2 Weeks Home Medications: Ambulatory Orders Aspirin [Aspirin EC] 81 mg PO DAILY 06/03/14 Linagliptin-Metformin HCl [Jentadueto 2.5-1000 mg] 1 tab PO BIDFD 06/03/14 Metoprolol Tartrate 100 mg PO BID 06/03/14 Carbamazepine 200 mg PO BID 10/12/18 Clopidogrel Bisulfate [Clopidogrel] 300 mg PO DAILY 10/12/18 Cyclobenzaprine HCl [Cyclobenzaprine Hydrochlo] 10 mg PO BEDTIME 10/12/18 Dapagliflozin Propanediol [Farxiga] 10 mg PO DAILY 10/12/18 Dexlansoprazole [Dexilant] 60 mg PO DAILY 10/12/18 Escitalopram Oxalate 20 mg PO DAILY 10/12/18 Ezetimibe 10 mg PO DAILY 10/12/18 Pregabalin [Lyrica] 150 mg PO BID 10/12/18 Simvastatin 20 mg PO DAILY 10/12/18 Tamsulosin [Flomax] 0.4 mg PO QD 10/12/18
--- NOTE | 2018-12-11 15:48 | RAD ---
EXAM DESCRIPTION: Chest,1 View CLINICAL HISTORY: 53 years Male, CHEST PAIN COMPARISON: Previous study October 31, 2018 TECHNIQUE: AP portable chest. FINDINGS: Heart size is large with increased pulmonary vascularity centrally. Density in the right pericardiac region could be prominent epicardial fat pad. Lateral chest x-ray may be helpful. 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 No consolidating infiltrate. No pulmonary mass or worrisome nodule. No pneumothorax or pleural effusion. Bones are unremarkable. IMPRESSION: Large heart with centrally increased vascularity. Electronically signed by: Jamar Post MD 12/11/2018 3:46 PM CDT
[2018-12-11] MEDS: SODIUM CHLORIDE 0.9% 1000ML 1,000 ML IVS ONE (15:53)
[2018-12-11 17:33] VITALS: BP 167/100; TEMP 97.2; O2SAT 98
== END 2018-12-11 17:34 | disposition home or self-care (01) ==
LOC: ER 14:46
DX: R00.0 Tachycardia, unspecified (principal); I51.9 Heart disease, unspecified; I10 Essential (primary) hypertension; E07.9 Disorder of thyroid, unspecified; E11.9 Type 2 diabetes mellitus without complications; K21.9 Gastro-esophageal reflux disease without esophagitis; F32.9 Major depressive disorder, single episode, unspecified; Z79.899 Other long term (current) drug therapy; Z79.82 Long term (current) use of aspirin
CPT/HCPCS: 36415; 71045; 80053; 83880; 84443; 84484; 85025; 85379; 93005; J7030

== ENCOUNTER → 2018-12-26 | Outpatient (CLI) | payer MEDICARE, MEDICAID | LOC: ECHO 08:00 | PROVIDERS: ATTEND Family Medicine | DX: R07.9 Chest pain, unspecified (principal); I31.3 Pericardial effusion (noninflammatory) ==

== ENCOUNTER → 2018-12-30 | Outpatient (CLI) | payer MEDICARE, MEDICAID | LOC: NM 08:06 | PROVIDERS: ATTEND Family Medicine | DX: R07.9 Chest pain, unspecified (principal) ==

== ENCOUNTER → 2019-01-02 | Outpatient (CLI) | payer MEDICARE, MEDICAID | LOC: LAB.O 07:11 | PROVIDERS: ATTEND Family Medicine | DX: E78.5 Hyperlipidemia, unspecified (principal) ==

== ENCOUNTER → 2019-01-07 | Outpatient (CLI) | payer MEDICARE, MEDICAID ==
--- NOTE | 2019-01-08 15:32 | CT ---
EXAM DESCRIPTION: Chest w/Contrast : Computed Tomography. CLINICAL HISTORY: 53 years Male PERICARDIAL EFFUSION COMPARISON: CT scan of the ankle and foot on the same visit.. Prior chest x-rays. TECHNIQUE: Spiral-axial scans at 5 x 5 mm intervals through the lungs and thorax without IV contrast. 2.5 x 5 mm lung algorithm axial reconstructions. Coronal and sagittal 2.0 Mm reconstructions. No adverse reactions. Total Exam DLP: 910.8 mGy-cm. This exam was performed according to our departmental dose-optimization program which includes automated exposure control, adjustment of the mA and/or kV according to patient size and/or use of iterative reconstruction technique; to reduce radiation dose to as low as reasonably achievable (ALARA). Nodule measurements under 10 mm are given as mean value of 3 axes diameters. FINDINGS: Lungs and large airways: 3 mm, viraj-fissural nodule versus calcification lateral horizontal fissure between the upper lobe and the middle lobe (axial series 4, image 47, subpleural. 3 mm subpleural nodule lateral right apex on image 4/28. 4 mm perifissural nodule upper major fissure on the right abutting the superior segment right lower lobe on image 4/51. Decreased volume in the left inferior lingula and left lower lobe. Pleural parenchymal scarring bilateral lower lobes and the right middle lobe. Pleural spaces: Unremarkable. Mediastinum and Gissel: Negative. Great vessels and Heart: Coronary artery atherosclerotic calcifications. Minimal calcifications in the aorta. Soft tissues of neck base, axillae, and chest wall: Surgical clips in the musculature and chest wall adjacent to be at the lower right thorax laterally. Upper abdomen: No fluid or free air in the included peritoneal space. Normal size of the included spleen and the adrenal glands. Minimal contraction of the gallbladder. Osseous structures: Unremarkable. No lytic or blastic lesions. IMPRESSION: 1. Multiple solid nodules 4 mm or less bilaterally. Largest nodules are perifissural. No acute infiltrate or pleural effusion. Minimal parenchymal pleural scarring. [facility] Best Practice recommendations, please see below*. *3.0 mm solid pulmonary nodule within the upper lobe. If patient is low risk for malignancy, no routine follow-up imaging is recommended; if patient is high risk for malignancy, a non-contrast Chest CT at 12 months is optional. If performed and the nodule is stable at 12 months, no further follow-up is recommended. These guidelines do not apply to immunocompromised patients and patients with cancer. Follow up in patients with significant comorbidities as clinically warranted. For lung cancer screening, adhere to Lung-RADS guidelines. Reference: Radiology. 2017; 284(1):228-43. Electronically signed by: Lauro De La Paz MD 01/08/2019 3:30 PM CDT
--- NOTE | 2019-01-08 15:32 | CT ---
EXAM DESCRIPTION: Lower Extremity CLINICAL HISTORY: 53 years Male, TYPE 2 DIABETES MELLITUS WITH PAD COMPARISON: Plain film examination dated October 01, 2018 of the right ankle TECHNIQUE: This exam was performed according to our departmental dose-optimization program, which includes automated exposure control, adjustment of the mA and/or kV according to patient size and/or use of iterative reconstruction technique. Noncontrast imaging of the right distal leg and ankle and foot with MPR reformatted images. FINDINGS: The distal fibula is resected above the level of fixation of the tibia through the ankle into the hindfoot. The laterally positioned tibial plate that extends distally to the calcaneus is fractured at the junction of the tibia and collapsed talus with slight overlapping of the proximal and distal fragments and medial angulation of the hindfoot below the talus. The distal portion of the plate is also angled posteriorly but this may represent the contour of the plate rather than abnormal displacement. There is marked deformity of the distal tibia consistent with an old healed fracture with the markedly irregular and deformed talotibial articulation. The talocalcaneal articulation is moderately degenerative but better intact and does not appear fused although fixation involving the distal portion of the lateral side plate appears intact between the talus and calcaneus. No fixation at the tail oh navicular or calcaneal cuboid articulation or involving the remainder of the midfoot or metatarsals is seen. Soft tissue gas or a drainable fluid collection or abscess is not apparent. Additional screws within the distal talus not involving the lateral side plate are noted in place. Aggressive destructive changes to strongly suggest osteomyelitis is not apparent. Only mild edematous changes involving the midfoot and forefoot distal to the previous fixation is noted. IMPRESSION: 1. Markedly abnormal distal leg ankle mortise and hindfoot with destructive joint changes at the talotibial articulation and advanced degenerative changes at the talocalcaneal articulation with previous fixation with lateral side plate and multiple additional screws in the distal tibia with apparent healed old fracture. 2. Hardware failure with fracture of the plate at the talotibial junction with overriding of the plate fragments and no evidence of bony union at the talotibial joint. 3. Distal plate fragment is angulated medially and posteriorly with anchoring screws in the distal plate extending into the talus and calcaneus but without evidence of subtalar fusion. 4. Drainable abscess or fluid collection or soft tissue gas or aggressive destructive changes to confirm osteomyelitis not apparent. 5. Osteopenic and modestly degenerative midfoot and forefoot without new fracture. 6. Previous resection of the distal fibula above the level of tibial and hindfoot fixation. Electronically signed by: Sourav Magana MD 01/08/2019 3:30 PM CDT
== END ==
LOC: CT 11:30
PROVIDERS: ATTEND Podiatrist Foot & Ankle Surgery
DX: I31.3 Pericardial effusion (noninflammatory) (principal); R91.8 Other nonspecific abnormal finding of lung field; M19.071 Primary osteoarthritis, right ankle and foot; E11.51 Type 2 diabetes mellitus with diabetic peripheral angiopathy without gangrene; G60.0 Hereditary motor and sensory neuropathy; M85.871 Other specified disorders of bone density and structure, right ankle and foot; T84.116A Breakdown (mechanical) of internal fixation device of bone of right lower leg, initial encounter; Z98.890 Other specified postprocedural states

== ENCOUNTER → 2019-01-15 | Outpatient (CLI) | payer MEDICARE, MEDICAID ==
--- NOTE | 2019-01-16 08:27 | US ---
EXAM DESCRIPTION: Ankle Brachial Index: Ultrasound. CLINICAL HISTORY: TYPE 2 DIABETES MELLITUS WITH PERIPHERAL ARTERY DISEASE COMPARISON: CT lower extremity 01/07/2019. TECHNIQUE: Measurement of systolic blood pressures in the bilateral brachial arteries and the bilateral distal lower extremities.. FINDINGS: MANNIE (BP units mm Hg.) RIGHT Brachial SBP 128. PT SBP 138. MANNIE 1.1. DP SBP 174. MANNIE 1.4. LEFT Brachial SBP 100. PT SBP 137. MANNIE 1.1. DP SBP 169. MANNIE 1.3. IMPRESSION: Elevated pressures and MANNIE values in the bilateral ankles can also indicate high-grade stenosis, depending on clinical presentation. Consider correlation with ultrasound Doppler evaluation of the bilateral lower extremity arterial systems. Electronically signed by: Lauro De La Paz MD 01/16/2019 8:25 AM CDT
== END ==
LOC: US 08:30
PROVIDERS: ATTEND Podiatrist Foot & Ankle Surgery
DX: E11.51 Type 2 diabetes mellitus with diabetic peripheral angiopathy without gangrene (principal); G60.0 Hereditary motor and sensory neuropathy

== ENCOUNTER → 2019-01-23 | Outpatient (CLI) | payer MEDICARE, MEDICAID ==
--- NOTE | 2019-01-23 16:41 | US ---
EXAM DESCRIPTION: Extremity,Lower Vito Arteries: Ultrasound. CLINICAL HISTORY: PERIPHERAL VASCULAR DISEASE COMPARISON: Ultrasound MANNIE examination January 15, 2019. TECHNIQUE: Doppler evaluation of the bilateral lower extremity arterial flow waveforms and velocities. FINDINGS: Arterial waveforms in the right lower extremity are triphasic or biphasic from the right common femoral artery through the right S2 tibial artery. No flow in the right dorsalis pedis artery.. Arterial waveforms in the left lower extremity are triphasic or biphasic from the left common femoral artery through the left dorsalis pedis artery.. Comments: Possible occlusion of the right anterior tibial artery. IMPRESSION: No significant atherosclerotic occlusive disease in the left lower extremity arterial system. Possible occlusion in the proximal or distal right anterior tibial artery with no flow in the right dorsalis pedis artery. Abnormally elevated MANNIE of the right ankle on study one week ago. Consider CTA abdominal aorta and runoff bilateral lower extremities. Electronically signed by: Lauro De La Paz MD 01/23/2019 4:39 PM CDT
== END ==
LOC: US 15:22
PROVIDERS: ATTEND Family Medicine
DX: I73.9 Peripheral vascular disease, unspecified (principal)

== ENCOUNTER → 2019-01-27 | Outpatient (CLI) | payer MEDICARE, MEDICAID ==
--- NOTE | 2019-01-27 12:08 | CT ---
EXAM DESCRIPTION: CTA Runoff CLINICAL HISTORY: 53 years, Male, PVD COMPARISON: None TECHNIQUE: CTA of the abdomen and pelvis with bilateral lower extremity runoff was performed with IV contrast including 3D reformatted images. This exam was performed according to our departmental dose-optimization program, which includes automated exposure control, adjustment of the mA and/or kV according to patient size and/or use of iterative reconstruction technique. FINDINGS: No abdominal aortic aneurysm or dissection. The celiac axis, superior mesenteric and renal arteries are unremarkable. The inferior mesenteric artery is perfused. The common, internal and external iliac arteries are normal caliber bilaterally. No atherosclerotic vascular disease in either lower extremity with patency of the common femoral, superficial femoral, profunda femoral and popliteal arteries bilaterally. No trifurcation disease with two vessel runoff at the level of the ankles bilaterally. Evaluation of the right ankle is slightly limited by artifact from orthopedic hardware at the same location. Right lower extremity muscular atrophy. No lung base abnormality. Probable diffuse fatty infiltration of the liver. No calcified gallstone. The spleen, pancreas, adrenals and kidneys are unremarkable. No small bowel or mesenteric abnormality. No bladder wall thickening. No colonic diverticular disease. No adenopathy or ascites. No acute bone lesion. Probable old healed fracture involving the left side of the pubic symphysis. Postoperative and remote posttraumatic changes in the right ankle. IMPRESSION: No vascular abnormality in the abdomen, pelvis or either lower extremity. Electronically signed by: Luis Blackwell MD 01/27/2019 12:07 PM CDT
== END ==
LOC: LAB.O 01-17 07:58
PROVIDERS: ATTEND Nurse Practitioner Psychiatric/Mental Health
DX: I73.9 Peripheral vascular disease, unspecified (principal); F31.4 Bipolar disorder, current episode depressed, severe, without psychotic features; F41.0 Panic disorder [episodic paroxysmal anxiety]; F10.20 Alcohol dependence, uncomplicated; R41.9 Unspecified symptoms and signs involving cognitive functions and awareness; Z79.899 Other long term (current) drug therapy

== ENCOUNTER → 2019-01-28 | Outpatient (CLI) | payer MEDICARE, MEDICAID | LOC: LAB.O 10:19 | PROVIDERS: ATTEND Family Medicine | DX: Z01.818 Encounter for other preprocedural examination (principal); E11.65 Type 2 diabetes mellitus with hyperglycemia; D64.9 Anemia, unspecified ==

== ENCOUNTER → 2019-03-18 | Outpatient (CLI) | payer MEDICARE, MEDICAID | LOC: YCFC.O 15:12 | PROVIDERS: ATTEND Family Medicine | DX: D50.9 Iron deficiency anemia, unspecified (principal) ==

== ENCOUNTER 2019-03-21 10:14 | Emergency (ER) | payer MEDICARE, MEDICAID ==
[2019-03-21 10:30] VITALS: TEMP 97.4
--- NOTE | 2019-03-21 11:03 | ED.PDOC ---
History of Present Illness - General Chief Complaint: ENT Problem Stated Complaint: Nose bleed x 19 hours Time Seen by Provider: 03/21/19 10:36 Source: patient Exam Limitations: no limitations - History of Present Illness Initial Comments: the patient is a 53-year-old male presenting to emergency room secondary to epistaxis of the left anterior nares. The one on for about the last 18 hours. The flow is slow. Direct visualization shows the source to be at the base of the left nares approximately three quarters of an inch in. I see no evidence of any other source of bleeding on the patient. Timing/Duration: other Severity: mild Improving Factors: nothing Worsening Factors: nothing Associated Symptoms: denies symptoms Allergies/Adverse Reactions: Allergies NO KNOWN ALLERGY Allergy (Verified 09/23/16 14:05) Home Medications: Ambulatory Orders Aspirin [Aspirin EC] 81 mg PO DAILY 06/03/14 Linagliptin-Metformin HCl [Jentadueto 2.5-1000 mg] 1 tab PO BIDFD 06/03/14 Metoprolol Tartrate 100 mg PO BID 06/03/14 Carbamazepine 200 mg PO BID 10/12/18 Clopidogrel Bisulfate [Clopidogrel] 300 mg PO DAILY 10/12/18 Cyclobenzaprine HCl [Cyclobenzaprine Hydrochlo] 10 mg PO BEDTIME 10/12/18 Dapagliflozin Propanediol [Farxiga] 10 mg PO DAILY 10/12/18 Dexlansoprazole [Dexilant] 60 mg PO DAILY 10/12/18 Escitalopram Oxalate 20 mg PO DAILY 10/12/18 Ezetimibe 10 mg PO DAILY 10/12/18 Pregabalin [Lyrica] 150 mg PO BID 10/12/18 Simvastatin 20 mg PO DAILY 10/12/18 Tamsulosin [Flomax] 0.4 mg PO QD 10/12/18 Review of Systems - Review of Systems Review of Systems: 03/21/19 11:02 for new symptoms only. Constitutional: States: no symptoms reported EENTM: States: see HPI Respiratory: States: no symptoms reported Cardiology: States: no symptoms reported Gastrointestinal/Abdominal: States: no symptoms reported Genitourinary: States: no symptoms reported Musculoskeletal: States: no symptoms reported Skin: States: no symptoms reported Neurological: States: no symptoms reported Endocrine: States: no symptoms reported All other Systems: No Change from Baseline Past Medical History (General) - Patient Medical History Hx Seizures: No Hx Stroke: No Hx Dementia: No Hx Asthma: No Hx of COPD: No Hx Cardiac Disorders: Yes Hx Congestive Heart Failure: No Hx Pacemaker: No Hx Hypertension: Yes Hx Thyroid Disease: Yes - Hypo Hx Diabetes: Yes Hx Gastroesophageal Reflux: Yes Hx Renal Disease: No Hx Cancer: No Hx of HIV: No Hx Hepatitis C: No Hx MRSA: Yes MRSA Source:: Wound - Vaccination History Hx Tetanus, Diphtheria Vaccination: No Hx Influenza Vaccination: Yes Hx Pneumococcal Vaccination: Yes Immunizations Up to Date: No - Social History Hx Tobacco Use: No Hx Chewing Tobacco Use: No Hx Alcohol Use: Yes Hx Substance Use: No Hx Substance Use Treatment: No Hx Depression: No Hx Physical Abuse: No Hx Emotional Abuse: No Hx Suspected Abuse: No - Female History Patient is a Female of Child Bearing Age (10 -59 yrs old): No Patient : No Family Medical History - Family History Mother Family History: No Known Name: Alex Jiménez Age (years): 50 Living Status: Still Living Hx Family Asthma: No Hx Family Congestive Heart Failure: No Hx Family Hypertension: No Hx Family Stroke: No Hx Cardiac Disease: No Hx Family Diabetes: No Hx Family Cancer: Yes - colon Physical Exam - Physical Exam General Appearance: Alert, No apparent distress Eye Exam: bilateral other - extra ocular movements are intact. Pupils are reactive. Ears, Nose, Throat: hearing grossly normal, normal pharynx - poor dentition, other - see history of present illness for the left nares Neck: non-tender, supple Respiratory: no respiratory distress, no accessory muscle use Cardiovascular/Chest: other - mild tachycardia. Peripheral Pulses: radial,right: 2+ Gastrointestinal/Abdominal: non tender, soft Rectal Exam: deferred Extremity: other - left upper extremity chronic". Right lower extremity is in a cast from previous surgery. Chronic changes related to poor blood flow. 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 Chemical cautery was applied with what appears to be good effect. 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 He needs to hold his Plavix for the next 3 days as well. He can continue his aspirin. After a few days, he can apply a thin layer of Vaseline to the area to prevent drying. He needs to avoid sleeping under a fan or air vent as this can dry out the tissue and make bleeding more likely. ER warnings are given for any significant worsening. Follow back up with his primary care doctor later this coming week. He did have a moderately elevated blood sugar here. He reports that he will adjust medications when he gets home. He has deferred insulin at this time. Departure - Departure Clinical Impression: Epistaxis Disposition: Discharge to Home or Self Care Condition: Fair Departure Forms: ED Discharge - Pt. Copy, Patient Portal Self Enrollment Instructions: Nosebleeds (DC) Diet: diabetic diet Activity: increase activity as tolerated Referrals: Vamshi Berger MD [Primary Care Provider] - 1-5 Days Home Medications: Ambulatory Orders Aspirin [Aspirin EC] 81 mg PO DAILY 06/03/14 Linagliptin-Metformin HCl [Jentadueto 2.5-1000 mg] 1 tab PO BIDFD 06/03/14 Metoprolol Tartrate 100 mg PO BID 06/03/14 Carbamazepine 200 mg PO BID 10/12/18 Clopidogrel Bisulfate [Clopidogrel] 300 mg PO DAILY 10/12/18 Cyclobenzaprine HCl [Cyclobenzaprine Hydrochlo] 10 mg PO BEDTIME 10/12/18 Dapagliflozin Propanediol [Farxiga] 10 mg PO DAILY 10/12/18 Dexlansoprazole [Dexilant] 60 mg PO DAILY 10/12/18 Escitalopram Oxalate 20 mg PO DAILY 10/12/18 Ezetimibe 10 mg PO DAILY 10/12/18 Pregabalin [Lyrica] 150 mg PO BID 10/12/18 Simvastatin 20 mg PO DAILY 10/12/18 Tamsulosin [Flomax] 0.4 mg PO QD 10/12/18 Additional Instructions: the patient is a 53-year-old male emergency room secondary to left anterior epistaxis. Chemical cautery was applied with what appears to be good effect. 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 He needs to hold his Plavix for the next 3 days as well. He can continue his aspirin. After a few days, he can apply a thin layer of Vaseline to the area to prevent drying. He needs to avoid sleeping under a fan or air vent as this can dry out the tissue and make bleeding more likely. ER warnings are given for any significant worsening. Follow back up with his primary care doctor later this coming week.
[2019-03-21 11:40] VITALS: BP 126/79; O2SAT 95
== END 2019-03-21 11:23 | disposition home or self-care (01) ==
LOC: ER 10:14
DX: R04.0 Epistaxis (principal); K21.9 Gastro-esophageal reflux disease without esophagitis; E11.9 Type 2 diabetes mellitus without complications; I10 Essential (primary) hypertension; E03.9 Hypothyroidism, unspecified; I51.9 Heart disease, unspecified; Z79.02 Long term (current) use of antithrombotics/antiplatelets; Z79.82 Long term (current) use of aspirin; Z79.899 Other long term (current) drug therapy

== ENCOUNTER → 2019-05-06 | Outpatient (CLI) | payer MEDICARE, MEDICAID ==
--- NOTE | 2019-05-07 10:16 | RAD ---
EXAM DESCRIPTION: Ankle,Right 3 Views: CR/DR/XR CLINICAL HISTORY: 53 years Male Pain in right lower limb COMPARISON: Preoperative radiograph right ankle September 2018. Radiographs of the tibia and fibula on this visit. TECHNIQUE: 3 VIEWS AP. Lateral. Oblique. Right ankle. FINDINGS: Intramedullary nail in the distal tibia extending through the plantar surface of the calcaneus for fusion. Transverse screws in the calcaneus and talus for fixation with longitudinal calcaneal screw entering posteriorly. Marked deformity of the ankle mortise and subtalar joints again noted. Also bony loose bodies on the medial aspect of the ankle joint with minimal soft tissue swelling. Previous resection distal right fibula. IMPRESSION: Right tibial ankle fusion with intramedullary nail and distal fixation screws in the calcaneus and talus. Customary position. No hardware or bony complications. Electronically signed by: Lauro De La Paz MD 05/07/2019 10:14 AM [facility]
--- NOTE | 2019-05-07 10:23 | RAD ---
EXAM DESCRIPTION: Tibia/Fibula,Right: CR/DR CLINICAL HISTORY: 53 years Male, Pain in right lower limb COMPARISON: Right ankle radiographs on the same visit. Radiographs of the right lower leg June 2016. TECHNIQUE/FINDINGS: 2 views AP and lateral right lower leg. Intramedullary nail introduced through the plantar calcaneus with the proximal and at the junction of the proximal third and middle third of the tibia. 2 proximal screws. Radiolucency around the more inferior of these 2 screws may indicate loosening. 3 distal screws is described in the ankle report, along with medial soft tissue swelling and medial radiodense loose bodies. Tracks from previous surgeries in the distal tibia. Marked deformity of the ankle mortise. Resection of the distal one fourth of the right fibula. No significant abnormalities of the right knee. IMPRESSION: Intramedullary nail fusing the right ankle and right tibia. Question of loosening of one of the superior screws in the superior aspect of the nail. Electronically signed by: Lauro De La Paz MD 05/07/2019 10:22 AM [facility]
== END ==
LOC: YCFC.O 11:13
PROVIDERS: ATTEND Family Medicine
DX: M79.604 Pain in right leg (principal); Z98.1 Arthrodesis status

== ENCOUNTER → 2019-08-14 | Outpatient (CLI) | payer MEDICARE, MEDICAID | LOC: YCFC.O 10:33 | PROVIDERS: ATTEND Family Medicine | DX: R53.83 Other fatigue (principal); E78.5 Hyperlipidemia, unspecified; I10 Essential (primary) hypertension; D64.9 Anemia, unspecified; Z12.5 Encounter for screening for malignant neoplasm of prostate | CPT/HCPCS: 36415; 80053; 80061; 81001; 82306; 82607; 82728; 82746; 83540; 83550; 84443; G0103 ==

== ENCOUNTER → 2019-08-27 | Outpatient (CLI) | payer MEDICARE, MEDICAID | LOC: YCFC.O 15:02 | PROVIDERS: ATTEND Family Medicine | DX: R53.83 Other fatigue (principal); E11.65 Type 2 diabetes mellitus with hyperglycemia; E55.9 Vitamin D deficiency, unspecified; R79.9 Abnormal finding of blood chemistry, unspecified; D50.9 Iron deficiency anemia, unspecified ==

== ENCOUNTER → 2019-09-04 | Outpatient (CLI) | payer MEDICARE, MEDICAID | LOC: LAB.O 10:58 | PROVIDERS: ATTEND Nurse Practitioner Psychiatric/Mental Health | DX: F31.4 Bipolar disorder, current episode depressed, severe, without psychotic features (principal) ==

== ENCOUNTER → 2019-11-10 | Outpatient (CLI) | payer MEDICARE, MEDICAID | LOC: LAB.O 08:00 | PROVIDERS: ATTEND Orthopaedic Surgery | DX: E11.42 Type 2 diabetes mellitus with diabetic polyneuropathy (principal); I10 Essential (primary) hypertension; M17.11 Unilateral primary osteoarthritis, right knee; E78.5 Hyperlipidemia, unspecified; D64.9 Anemia, unspecified; I25.10 Atherosclerotic heart disease of native coronary artery without angina pectoris ==

== ENCOUNTER → 2019-11-27 | Outpatient (CLI) | payer MEDICARE, MEDICAID | LOC: YCFC.O 09:16 | PROVIDERS: ATTEND Family Medicine | DX: M17.0 Bilateral primary osteoarthritis of knee (principal); I10 Essential (primary) hypertension ==

== ENCOUNTER → 2020-01-16 | Outpatient (CLI) | payer MEDICARE, MEDICAID ==
--- NOTE | 2020-01-18 16:01 | MRI ---
EXAM DESCRIPTION: Lumbar Spine w/o Contrast CLINICAL HISTORY: LOW BACK PAIN COMPARISON: 08/03/2015 TECHNIQUE: MRI of the lumbar spine is performed according to our usual protocol with axial and sagittal multi sequence imaging. FINDINGS: The designated L5-S1 disc space is on axial T2 image 3. Straightening of the normal lumbar lordosis. Vertebral body stature is maintained. There is no acute fracture or destructive osseous lesion. The conus medullaris terminates normally. Narrowing of the spinal canal and neural foramina from L3-L4 through L5-S1 due to prominent epidural lipomatosis as detailed below. 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 L1-2: No significant findings. L2-3: Mild facet hypertrophy. No stenosis. L3-4: Mild epidural lipomatosis. Mild facet hypertrophy with bilateral facet joint effusions. Minimal annular disc bulge. Minimal spinal canal stenosis. The neural foramina are patent. L4-5: Prominent ventral epidural lipomatosis. Disc desiccation with mild disc narrowing. Right posterolateral annular tear. Moderate facet hypertrophy with ligamentum flavum thickening. Bilateral facet joint effusions. 3 mm disc bulge. Multifactorial moderate spinal canal stenosis. Residual AP diameter of the thecal sac is 6.8 mm. Moderate right greater than left neural foraminal stenosis. The findings are slightly progressed. L5-S1: Prominent ventral epidural lipomatosis. Disc desiccation. Posterior annular tear. Moderate facet hypertrophy with bilateral facet joint effusions. 3 mm disc bulge. Mild spinal canal stenosis. Residual AP diameter of the thecal sac is 8 mm. Mild bilateral neural foraminal stenosis. IMPRESSION: 1. Multilevel lumbar disc degeneration and facet degenerative changes. At L4-L5, there is multifactorial moderate spinal canal stenosis and moderate right greater than left neural foraminal stenosis. Ventral epidural lipomatosis contributes to spinal canal narrowing. 2. 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 3. Other levels as detailed above. Electronically signed by: Johnnie Lemons MD 01/18/2020 3:59 PM CDT
== END ==
LOC: MRI 13:00
PROVIDERS: ATTEND Family Medicine
DX: M51.36 Other intervertebral disc degeneration, lumbar region (principal); M47.896 Other spondylosis, lumbar region; M48.061 Spinal stenosis, lumbar region without neurogenic claudication; Q76.49 Other congenital malformations of spine, not associated with scoliosis; E88.2 Lipomatosis, not elsewhere classified

== ENCOUNTER → 2020-02-05 | Outpatient (CLI) | payer MEDICARE, MEDICAID | LOC: YCFC.O 10:26 | PROVIDERS: ATTEND Nurse Practitioner | DX: Z20.828 Contact with and (suspected) exposure to other viral communicable diseases (principal) ==

== ENCOUNTER → 2020-02-19 | Outpatient (CLI) | payer MEDICARE, MEDICAID ==
--- NOTE | 2020-02-20 08:06 | RAD ---
EXAM: Pelvis INDICATION: 54 years Male, HIP PAIN LEFT COMPARISON: CTA runoff 01/27/2019, pelvic radiograph 04/01/2015 FINDINGS: Single view of the pelvis was performed. The examination is somewhat underpenetrated. No fracture or dislocation. No destructive osseous lesion. A small triangular density at the left pubic bone near the pubic symphysis appears to represent a tiny exostosis seen on the prior CTA of 01/27/2019 and has been stable since the pelvic radiograph of 04/01/2015. Minimal degenerative change in the hips and visualized lower lumbar spine. The pubic symphysis and sacroiliac joints are intact. IMPRESSION: Minimal degenerative change in the hips without fracture or dislocation. Electronically signed by: Cheyenne Garcia MD 02/20/2020 8:04 AM [facility]
--- NOTE | 2020-02-20 11:14 | RAD ---
EXAM DESCRIPTION: Knee,Left 1 or 2 Views CLINICAL HISTORY: 54 years Male, KNEE PAIN LEFT COMPARISON: January 08, 2020 Findings: One view(s)/radiograph(s) One lateral radiographs submitted for evaluation. The single image limits evaluation. Trace joint effusion. No acute osseous abnormality identified although evaluation is limited. IMPRESSION: Trace left knee joint effusion. Electronically signed by: Saqib Gonzalez MD 02/20/2020 11:12 AM [facility]
== END ==
LOC: RAD 08:55
PROVIDERS: ATTEND Orthopaedic Surgery
DX: M16.0 Bilateral primary osteoarthritis of hip (principal); M25.462 Effusion, left knee

== ENCOUNTER → 2020-02-25 | Outpatient (CLI) | payer MEDICARE, MEDICAID | LOC: YCFC.O 08:17 | PROVIDERS: ATTEND Family Medicine | DX: E11.9 Type 2 diabetes mellitus without complications (principal); I10 Essential (primary) hypertension; E78.5 Hyperlipidemia, unspecified; E53.8 Deficiency of other specified B group vitamins; D50.9 Iron deficiency anemia, unspecified; E55.9 Vitamin D deficiency, unspecified ==

== ENCOUNTER → 2020-03-17 | Outpatient (CLI) | payer MEDICARE, MEDICAID ==
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
== END ==
LOC: YCFC.O 12:43
PROVIDERS: ATTEND Family Medicine
DX: U07.1 COVID-19 (principal); R91.8 Other nonspecific abnormal finding of lung field

== ENCOUNTER → 2020-03-18 | Outpatient (CLI) | payer MEDICARE, MEDICAID ==
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
== END ==
LOC: CT 13:23
PROVIDERS: ATTEND Family Medicine
DX: R79.1 Abnormal coagulation profile (principal); R91.8 Other nonspecific abnormal finding of lung field; R16.2 Hepatomegaly with splenomegaly, not elsewhere classified; R59.9 Enlarged lymph nodes, unspecified

== ENCOUNTER → 2020-04-06 | Outpatient (CLI) | payer MEDICARE, MEDICAID | LOC: YCFC.O 11:40 | PROVIDERS: ATTEND Family Medicine | DX: M13.0 Polyarthritis, unspecified (principal); D64.9 Anemia, unspecified ==